=== PATIENT | male | born 1970 | race Caucasian/White ===

== ENCOUNTER 2021-10-21 10:51 | Emergency (ER) | payer OTHER ==
[~2021-10-21] VITALS: Ht 188 cm; Wt 97.7 kg
[2021-10-21 10:57] VITALS: BP 134/93
[2021-10-21] MEDS ORDERED: LIDOCAINE 1%/EPI 1:100,000 20 ML VIAL. IJ ONE (12:15)
[2021-10-21] MEDS ORDERED: CLIN150C16 PO (12:51)
--- NOTE | 2021-10-21 12:51 | PHYS DOC ---
Past History Past Surgical History: No Surgical History Alcohol Use: None General Adult EDM: Chief Complaint: ABSCESS HPI: HPI: Patient is a 50-year-old male who presents emergency department with complaints of an abscess to the back of his scalp for the last 5 days. Patient denies any drainage or bleeding from the site. He states he has been holding heat to the area to try to bring it to a head without any success. He denies any fever, body aches, chills, headache, neck stiffness, nausea, vomiting, or shortness of breath. Patient states his last tetanus was less than 5 years ago. He currently rates his discomfort a 4 out of 10 on the pain scale, he denies any alleviating factors. He states his symptoms started shortly after having his haircut. Review of Systems: Review of Systems: Complete ROS is negative unless otherwise noted in the HPI. Current Medications: Current Meds: Current Medications Medications (Trade) Dose Ordered Sig/Naima Start Time Stop Time Status Last Admin Dose Admin Lidocaine/ Epinephrine (Xylocaine 1%-Epi 1:100,000) 20 ml 1X ONCE 10/21/21 12:15 10/21/21 12:16 DC Allergies: Allergies: Allergies Coded Allergies Type Severity Reaction Last Updated Verified No Known Drug Allergies 10/21/21 No Physical Exam: PE: See above Constitutional: Well developed, well nourished, no acute distress, non-toxic appearance. [] HENT: Normocephalic, atraumatic, bilateral external ears normal, nose normal. [] Eyes: PERRLA, EOMI, conjunctiva normal, no discharge. [] Neck: Normal range of motion, supple, no stridor. [] Cardiovascular:Heart rate regular rhythm Lungs & Thorax: Respirations even and unlabored, no retractions, no respiratory distress Skin: Warm, dry, no erythema, no rash.; 2 cm diameter fluctuant area with surrounding erythema to the occipital scalp with central punctum, consistent with cutaneous abscess [] Extremities: No cyanosis, ROM intact, no edema. [] Neurologic: Alert and oriented X 3, normal motor, normal sensory, no focal deficits noted. [] Psychologic: Affect normal, judgement normal, mood normal. [] Current Patient Data: Vital Signs: Vital Signs Date Time Temp Pulse Resp B/P (MAP) Pulse Ox O2 Delivery O2 Flow Rate FiO2 10/21/21 10:57 97.8 73 16 134/93 (107) 96 Room Air EKG: EKG: [] Radiology/Procedures: Radiology/Procedures: Incision and drainage by me: Anesthesia: 1% lidocaine with epinephrine locally Location: Occipital scalp Technique: The affected area was cleansed with iodine anesthesia, and an 11 blade scalpel was inserted into the lesion a moderate amount of pus followed by bloody drainage was expressed, the wound was superficial, no packing was placed Patient's bleeding was easily controlled in the department and there is no indication of anemia. No evidence of neurologic injury, vascular injury, or foreign body. Patient is appropriate for outpatient follow up. [] Heart Score: C/O Chest Pain: No Course & Med Decision Making: Course & Med Decision Making Pertinent Labs and Imaging studies reviewed. (See chart for details) 50-year-old male presents emergency department complaints of an abscess. Incision and drainage as documented above. Prescriptions written for cli ndamycin. The patient was encouraged to take a daily probiotic or eat yogurt daily while taking the antibiotic recommend follow-up with primary care doctor next week for reevaluation, return to the ER if symptoms worsen or fever develops. I encouraged application of warm moist heat to the affected area for 10 to 15 minutes at 1 to 2 hours today and tomorrow then as needed. May take Tylenol or ibuprofen as needed for pain. Patient verbalized an understanding of home care, medications, follow-up, and return to ED instructions and was in agreement with the plan of care. [] Shannenon Disclaimer: Johny Disclaimer: This electronic medical record was generated, in whole or in part, using a voice recognition dictation system. Departure Departure: Impression: Primary Impression: Abscess of scalp Disposition: 01 HOME / SELF CARE / HOMELESS Condition: STABLE Referrals: NON,STAFF (PCP) Patient Instructions: Abscess, Care After Additional Instructions: Fill the prescription(s) and use as directed. You may take tylenol or ibuprofen as needed for pain. Apply warm, moist packs to the area for 10 to 15 minutes every 1-2 hours today and tomorrow then as needed to help decrease discomfort. Follow up with your primary care doctor or return to the ER in 48 hours to have wound rechecked. Return to the ER sooner if your symptoms worsen or fever develops. Scripts Clindamycin Hcl (CLINDAMYCIN HCL) 150 Mg Capsule 450 MG PO TID for infection for 7 Days, #63 CAP 0 Refills Prov: AVERY VILLALTA APRN 10/21/21 AVERY VILLALTA APRN October 21, 2021 12:51
== END 2021-10-21 13:00 | disposition home or self-care (01) ==
LOC: ER 10:51
DX: L02.811 Cutaneous abscess of head [any part, except face] (principal)
CPT/HCPCS: 10060; 99283